=== PATIENT | male | born 1975 | race Caucasian/White ===

== ENCOUNTER 2019-09-28 00:48 | Emergency (ER) | payer BC ==
[~2019-09-28] VITALS: Ht 188 cm; Wt 176.9 kg
[~2019-09-28 00:48] MED LIST: ADDERALL 10 MG10 MG PO; LISINOPRIL20 MG PO; LOVASTATIN 20 M20 MG PO; NORCO 5-325 TA1 EACH PO; ONDANSETRON HCL4 M2 PO; PRILOSEC 20 MG20 MG PO; PROZAC20 MG PO; XANAX 0.5 MG0.5 MG PO
[2019-09-28 01:22] LABS: ABSOLUTE BASOPHILS 0.1 thou/uL (0.0-0.2); ABSOLUTE EOSINOPHILS 0.1 thou/uL (0.0-0.7); ABSOLUTE LYMPHOCYTES 2.5 thou/uL (0.8-5.3); ABSOLUTE MONOCYTES 0.8 thou/uL (0.0-1.2); ABSOLUTE NEUTROPHILS 6.8 thou/uL (1.6-8.1); BASOPHILS 0.9 %; EOSINOPHILS 1.3 %; HEMATOCRIT 43.8 % (42.0-52.0); LYMPHOCYTES 24.4 %; MCH 29.6 pg (26.0-34.0); MCHC 34.3 g/dL (28.0-37.0); MCV 86.2 fL (80.0-100.0); MONOCYTES 7.9 %; NUCLEATED RBCS 0 /100WBC; PLATELET COUNT* 154 thou/uL (150-400); POLYS 65.5 %; RBC 5.09 mil/uL (4.50-6.00); RDW-CV 14.1 % (10.5-14.5); WBC 10.4 thou/uL (4.0-11.0)
[2019-09-28 01:48] LABS: PROTIME 10.1 Seconds (9.20-11.50)
[2019-09-28 01:49] LABS: CALCIUM 8.1 mg/dL (8.5-10.1); CREATININE 1.1 mg/dL (0.6-1.3); POTASSIUM 3.7 mmol/L (3.5-5.1)
[2019-09-28 01:53] LABS: ALBUMIN 3.6 g/dL (3.4-5.0); TOTAL BILIRUBIN 0.6 mg/dL (<0.1-1.0); TOTAL PROTEIN 7.4 g/dL (6.4-8.2)
[2019-09-28] MEDS ORDERED: HYDROCODON-ACE1 EAC8 PO (02:30)
[2019-09-28] MEDS ORDERED: ZOFRAN ODT4 MG PO (02:30)
[2019-09-28] MEDS ORDERED: CARAFATE 1 GM TA1 GM PO (02:30)
[2019-09-28 02:40] VITALS: BP 121/56
--- NOTE | 2019-09-28 13:29 | EKG ---
[place] [address] ELECTROCARDIOGRAM REPORT Name: AMANDA CAVANAUGH Room: [facility]#: [id number] Admission: 09/28/19 Attend Phys: Discharge: 09/28/19 Date of : 77 Date of Service: 09/28/1947 Report #: [id number] THIS REPORT FOR: //name// [facility] ED Test Date: 2019-09-28 Test Time: 00:49:31 Pat Name: AMANDA CAVANAUGH Department: Room: Gender: Medical Claims Assistant: [facility] : 1975 Requested By: Tammy Rosenberg Order Number: [id number] MD: Trevin Chung Measurements Intervals [place]clean Rate: 87 P: 57 WI: 162 QRS: 23 QRSD: 99 T: 17 QT: 348 QTc: 419 Interpretive Statements Sinus rhythm Compared to ECG 04/23/2012 11:34:26 No significant changes Electronically Signed On 09-28-2019 13:27:54 CDT by Trevin Chung [email or web address] <ELECTRONICALLY SIGNED> By: Trevin Chung MD, [facility] 09/28/19 1327 0049 Trevin Chung MD, FACC /EPI
== END 2019-09-28 02:40 | disposition home or self-care (01) ==
LOC: M.ERS 00:48
PROVIDERS: Emergency Medicine
DX: K29.00 Acute gastritis without bleeding (principal); I10 Essential (primary) hypertension; K21.9 Gastro-esophageal reflux disease without esophagitis; F32.9 Major depressive disorder, single episode, unspecified; F41.9 Anxiety disorder, unspecified; E78.00 Pure hypercholesterolemia, unspecified; F98.8 Other specified behavioral and emotional disorders with onset usually occurring in childhood and adolescence

== ENCOUNTER → 2019-10-07 | Outpatient (CLI) | payer BC ==
[~2019-10-07] MED LIST changes: +CARAFATE 1 GM TA1 GM PO; +HYDROCODON-ACE1 EAC8 PO; +ZOFRAN ODT4 MG PO
== END ==
LOC: M.LAB 07:16
PROVIDERS: ATTEND Internal Medicine Gastroenterology
DX: Z01.812 Encounter for preprocedural laboratory examination (principal); R13.10 Dysphagia, unspecified; R07.89 Other chest pain; Z87.19 Personal history of other diseases of the digestive system

== ENCOUNTER → 2019-10-13 | Day surgery (SDC) | payer BC ==
--- NOTE | ~2019-10-13 | PROC ---
[address] [address] PROCEDURE REPORT Name: AMANDA CAVANAUGH Room: [facility].#: [id number] Admission: 10/13/19 Attend Phys: Yovany Alberts MD Discharge: Date of : 77 Report #: [id number] THIS REPORT FOR: //name// cc: Maninder Car Robin L. FNP ~ THIS REPORT FOR: //name// For GI report, please see the Provation report in Perceptive 7 content. By: 1448Medical Records Staff KINGA /KENAN
--- NOTE | 2019-10-14 16:07 | PATH ---
[facility] [address] [place] [address] PATHOLOGY RPT PROCEDURE Name: DICKSON CAMPBELL [id number]: 10[facility]/19 Date of : 77 Discharge: Report #: [id number] Path Case #: [id number] [facility] Accession Number: [id number] . 01 Material submitted: . PART A: esophagus - ESOPHAGUS PART B: stomach - GASTRIC . 01 Clinical history: . Dysphagia . 02 Diagnosis: A. 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 . B. Gastric (for H. pylori): - Nonspecific moderate chronic and minimal active gastritis, negative for Helicobacter pylori organisms, granulomas and dysplasia. . (SHARAD:waqar; 10/13/2019) . Special stain on B: H. pylori immuno MBR 10/14/2019 1043 Local . 02 Electronically signed: . Nehemiah Larkin MD, Pathologist NPI- [id number] . 01 Gross description: . A. The specimen is received in formalin labeled "Dickson Campbell, esophagus" and consists of a fragment of pink-chavis tissue measuring 0.5 x 0.3 x 0.2 cm which is entirely submitted in A1. . B. The specimen is received in formalin labeled "CampbellDickson, gastric for H. pylori" and consists of a fragment of chavis tissue measuring 0.6 x 0.4 x 0.2 cm which is entirely submitted in B1. (F; 10/13/2019) JFQ/MECCA 10/13/2019 2100 Local . 02 Pathologist provided ICD-10: K20.9, K29.50 . 02 CPT . 355737, 381959, D40625 Specimen Comment: A courtesy copy of this report has been sent to [phone] [address] PATHOLOGY RPT PROCEDURE Name: MAODICKSON Room: [facility]#: [id number] Admission: 10/13/19 Date of : 77 Discharge: Report #: [id number] Path Case #: [id number] Specimen Comment: [id number] Specimen Comment: Report sent to / DR MATA Specimen Comment: A duplicate report has been generated due to demographic updates. Performed at: 01 [facility] [place] [address], [place], [place] [id number] MD Rick Contreras MD Phone: [phone] Performed at: 02 [facility] [place] [address] [place], [place] [id number] MD Nehemiah Larkin MD Phone: [phone]
== END | disposition home or self-care (01) ==
LOC: M.SUR 05:24
PROVIDERS: ATTEND Internal Medicine Gastroenterology
DX: R13.10 Dysphagia, unspecified (principal); K29.50 Unspecified chronic gastritis without bleeding; K20.9 Esophagitis, unspecified; I10 Essential (primary) hypertension; E78.00 Pure hypercholesterolemia, unspecified; F32.9 Major depressive disorder, single episode, unspecified; F41.9 Anxiety disorder, unspecified; Z98.890 Other specified postprocedural states; Z90.49 Acquired absence of other specified parts of digestive tract; Z79.899 Other long term (current) drug therapy

== ENCOUNTER 2021-01-09 10:55 | Emergency (ER) | payer BC ==
[~2021-01-09] VITALS: Ht 188 cm; Wt 181.4 kg
[2021-01-09] MEDS ORDERED: CEPHALEXIN500 MG PO (13:41)
[2021-01-09 13:45] VITALS: BP 154/94
== END 2021-01-09 13:46 | disposition home or self-care (01) ==
LOC: M.ERS 10:55
DX: I80.02 Phlebitis and thrombophlebitis of superficial vessels of left lower extremity (principal); F32.9 Major depressive disorder, single episode, unspecified; I10 Essential (primary) hypertension; F41.9 Anxiety disorder, unspecified; K21.9 Gastro-esophageal reflux disease without esophagitis; E78.00 Pure hypercholesterolemia, unspecified; Z79.899 Other long term (current) drug therapy

== ENCOUNTER 2021-04-03 20:52 | Emergency (ER) | payer BC ==
[~2021-04-03] VITALS: Ht 188 cm; Wt 187.8 kg
[~2021-04-03 20:52] MED LIST changes: +CEPHALEXIN500 MG PO
[2021-04-03 22:59] VITALS: BP 173/102
== END 2021-04-03 23:00 | disposition home or self-care (01) ==
LOC: M.ERS 20:52
DX: K91.840 Postprocedural hemorrhage of a digestive system organ or structure following a digestive system procedure (principal); I10 Essential (primary) hypertension; E78.00 Pure hypercholesterolemia, unspecified; K21.9 Gastro-esophageal reflux disease without esophagitis; Z79.899 Other long term (current) drug therapy